=== PATIENT | female | born 1980 | race African-American/Black ===

== ENCOUNTER 2017-07-05 13:32 | Emergency (ER) | payer OTHER ==
[~2017-07-05 13:32] MED LIST: ADVA250A INH; ALBU0.08 NEB; ALBU1.25 NEB; ALLE60TA PO; MEDR4PAK PO; MONT10TA2 PO; SPIRCAP INH; VENTAER INH; ZOFR4TAB3 SL
[2017-07-05 13:33] VITALS: BP 175/91; PULSE 100; RESP 22; TEMP 97.9; O2SAT 97
--- NOTE | 2017-07-05 15:11 | RADRPT ---
EXAM DATE/TIME: 07/05/2017 14:18 [place] COMPARISON: No previous studies available for comparison. INDICATIONS : Patient states backed into a pole. Pain in lower back. MEDICAL HISTORY : None. SURGICAL HISTORY : None. ENCOUNTER: Initial ACUITY: 4 - 6 days PAIN SCORE: 8/10 LOCATION: Lower back FINDINGS: The exam demonstrates degenerative changes with loss of disc space height at the L5/S1 level. The rem ainder of the vertebral bodies appear intact. The alignment is anatomic. No acute fracture is seen. CONCLUSION: 1. There is loss of disc space height at L5-S1. The exam would suggest at least some mild degenerativ e changes at this level as well. No acute compression fracture seen. Aditya Minor MD on July 05, 2017 at 15:08 Board Certified Radiologist. This report was verified electronically.
[2017-07-05] MEDS ORDERED: ROBA500T PO (15:48)
--- NOTE | 2017-07-05 15:48 | PD ---
HPI Chief Complaint: Back/ Neck Pain or Injury Time Seen by Provider: 15:43 Travel History International Travel<30 days: No Contact w/Intl Traveler<30days: No Traveled to known affect area: No History of Present Illness HPI 36-year-old female presents to the emergency department with low back pain. States that Tuesday she was hopping onto a ride and hit her tailbone and lower back a couple of times on the seat. States Tuesday she did not have pain however , she developed pain Tuesday and is worsening over the last couple days. Movement increases pain and rest decreases. She has been taking ibuprofen 800 mg without relief. Patient denies fever, chills, weakness, numbness, tingling, loss of bowel or bladder function, saddle anesthesia. PFSH Past Medical History Asthma: Yes ?: Not LMP: CURRENTLY Past Surgical History Section: Yes Social History Alcohol Use: Yes (OCCASIONAL) Tobacco Use: No Substance Use: No Allergies-Medications (Allergen,Severity, Reaction): Coded Allergies: No Known Allergies (Unverified , 05/07/17) Reported Meds & Prescriptions Reported Meds & Active Scripts Active Robaxin (Methocarbamol) 500 Mg Tab 500 Mg PO TID 5 Days Medrol Dosepak (Methylprednisolone) 4 Mg Dspk 4 Mg PO DIRECTED Per Pharmacist direction Zofran Odt (Ondansetron Odt) 4 Mg Tab 4 Mg SL Q6HR PRN Albuterol Neb (Albuterol Sulfate) 1.25 Mg/3 Ml Neb 1.25 Mg NEB Q6HR NEB PRN Reported Spiriva Handihaler (Tiotropium Inh) 18 Mcg Cap 18 Mcg INH DAILY 1 capsule = 18 mcg Advair Diskus Inh (Fluticasone-Salmeterol Inh) 250-50 Mcg/Blist Aer 1 Puff INH BID Rinse mouth after use. Singulair (Montelukast Sodium) 10 Mg Tab 10 Mg PO HS [place] Allergy (Fexofenadine HCl) 60 Mg Tab 60 Mg PO BID Albuterol Neb (Albuterol Sulfate) 2.5 Mg/3 Ml Neb 2.5 Mg NEB Q4HR NEB PRN Ventolin Hfa 18 GM Inh (Albuterol Sulfate) 90 Mcg/Act Aer 2 Puff INH Q4-6H PRN Review of Systems Except as stated in HPI: all other systems reviewed are Neg Physical Exam Narrative GENERAL: Well-nourished, well-developed patient. In moderate distress SKIN: Focused skin assessment warm/dry. HEAD: Normocephalic. EYES: No scleral icterus. No injection or drainage. NECK: Supple, trachea midline. No JVD or lymphadenopathy. CARDIOVASCULAR: Regular rate and rhythm without murmurs, gallops, or rubs. RESPIRATORY: Breath sounds equal bilaterally. No accessory muscle use. GASTROINTESTINAL: Abdomen soft, non-tender, nondistended. MUSCULOSKELETAL: No cyanosis, or edema. TTP midline lumbar spine to sacroiliac joints. Unable to appreciate muscle spasms because of body habitus. Neurovascularly intact. BACK: Nontender without obvious deformity. No CVA tenderness. Data Data Last Documented VS Vital Signs Date Time Temp Pulse Resp B/P (MAP) Pulse Ox O2 Delivery O2 Flow Rate FiO2 07/05/17 13:33 97.9 100 22 175/91 (119) 97 Orders Orders Spine, Lumbar - Ltd (Ap & Lat) (07/05/17 ) Acetamin-Hydrocod 325-5 Mg ([place] 5-325 (07/05/17 16:00) Ed Discharge Order (07/05/17 15:48) MDM Medical Decision Making Medical Screen Exam Complete: Yes Emergency Medical Condition: Yes Differential Diagnosis Lumbar contusion versus fracture versus abrasion Narrative Course 36-year-old female presents to the emergency department with low back pain. States that Tuesday she was hopping onto a ride and hit her tailbone and lower back a couple of times on the seat. States Tuesday she did not have pain however , she developed pain Tuesday and is worsening over the last couple days. Movement increases pain and rest decreases. No radiation of pain. She has been taking ibuprofen 800 mg without relief. Patient denies fever, chills, weakness , numbness, tingling, loss of bowel or bladder function, saddle anesthesia. No red flag symptoms. Vital signs stable Physical exam consistent with a contusion of the lower lumbar region with likely muscle spasms Imaging study negative for acute process. Patient to continue it Motrin and start Robaxin for discomfort. She follow up primary care physician within 2 days. Return for worsening symptoms. Diagnosis Primary Impression: Contusion of lower back Qualified Codes: S30.0XXA - Contusion of lower back and pelvis, initial encounter Referrals: Primary Care Physician Additional Instructions: Perform light stretches of the lower back and legs, and alternate heat and ice packs. If you develop increased pain, weakness, fever, chills, or bowel or bladder issues, return to the ED for further treatment and evaluation. Follow up with your primary care physician in 2-3 days. Take muscle relaxers as prescribed Scripts Methocarbamol (Robaxin) 500 Mg Tab 500 MG PO TID for Muscle Spasm for 5 Days, TAB 0 Refills Prov: Yi Sharma MD 07/05/17 Disposition: 01 DISCHARGE HOME Condition: Stable Keturah Galvez Jul 05, 2017 15:48
[2017-07-05] MEDS ORDERED: ACETAMINOPHEN/HYDROcodone 325 MG/5 MG TAB PO ONE (16:00)
== END 2017-07-05 16:19 | disposition home or self-care (01) ==
LOC: NEPK 13:32
DX: S30.0XXA Contusion of lower back and pelvis, initial encounter (principal); W22.8XXA Striking against or struck by other objects, initial encounter; J45.909 Unspecified asthma, uncomplicated
CPT/HCPCS: 72100; 99283